=== PATIENT | female | born 1985 | race American Indian/Alaskan Native ===

== ENCOUNTER 2017-10-30 17:31 | Emergency (ER) | payer OTHER ==
[2017-10-30 17:57] LABS: SQUAMOUS EPITHIAL 2 /hpf (0-5); URINE BILIRUBIN NEGATIVE (NEGATIVE); URINE BLOOD NEGATIVE (NEGATIVE); URINE CLARITY Clear (Clear); URINE COLOR Yellow (YELLOW); URINE GLUCOSE (UA) NORMAL (Normal); URINE LEUKOCYTE ESTERASE NEG Leu/uL (Negative); URINE PROTEIN NEGATIVE (NEGATIVE); URINE UROBILINOGEN NORMAL mg/dL (0.2-1.0)
[2017-10-30 17:58] LABS: HCG,QUALITATIVE URINE NEGATIVE (NEGATIVE)
[2017-10-30] MEDS ORDERED: Sodium Chloride 0.9% 1,000 ML IV STA ×2 (18:09→19:03)
[2017-10-30 18:17] LABS: BASO % 0.6 % (0.0-2.0); EOS # 0.1 K/uL (0.0-0.7); EOS % 0.9 % (0.0-4.0); HEMOGLOBIN 13.9 g/dL (11.0-16.0); LYMPH % 28.9 % (20.0-40.0); MEAN CELL VOLUME 91.5 fL (81.0-99.0); MEAN CORPUSCULAR HEMOGLOBIN 31.1 pg (27.0-31.0); MEAN PLATELET VOLUME 7.5 fL (7.2-11.7); MONO # 0.4 K/uL (0.0-0.8); NEUT # 4.5 K/uL (1.8-7.0); NEUT % 63.6 % (50.0-75.0); RBC 4.45 Mil/uL (3.80-5.20); RED CELL DISTRIBUTION WIDTH 13.3 % (11.5-14.5)
[2017-10-30] MEDS ORDERED: Sodium Chloride 0.9% 1,000 ML ONE (18:18)
[2017-10-30 18:27] LABS: AMYLASE 119 U/L (30-110); CALCIUM 9.4 mg/dl (8.6-10.4); GFR AFRICAN-AMERICAN > 60; GFR NON-AFRICAN AMERICAN > 60; LIPASE 122 U/L (23-300)
[2017-10-30 18:30] LABS: ALB/GLOB RATIO 1.4 (1.0-2.1); ALBUMIN 4.8 g/dL (3.5-5.0); ALT/SGPT < 6 U/L (9-52); AST/SGOT 43 U/L (14-36); BLOOD UREA NITROGEN 17 mg/dL (7-17)
--- NOTE | 2017-10-30 18:51 | C.PDOC ---
History Of Present Illness <Carmen Morgan - Last Filed: 10/30/17 19:04> <PhilKelsie - Last Filed: 10/30/17 21:04> 32 y/o female, [facility], presents to the ER complaining of dizziness which began 1 hr ago. 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 Patient reports that she had cold sweats. She notes that she took a break and ate a meal. However, she did not feel better. She had several episodes of vomiting. Otherwise, she denies having CP, abdominal pain, and diarrhea. (Carmen Morgan) History Per: Patient History/Exam Limitations: no limitations Onset/Duration Of Symptoms: Hrs Current Symptoms Are (Timing): Still Present Severity: Moderate <Carmen Morgan - Last Filed: 10/30/17 19:04> <Kelsie Villarreal - Last Filed: 10/30/17 21:04> Time Seen by Provider: 10/30/17 18:02 Chief Complaint (Nursing): Abdominal Pain Past Medical History Reviewed: Historical Data, Nursing Documentation, Vital Signs - Medical History PMH: No Chronic Diseases Surgical History: No Surg Hx Family History: States: No Known Family Hx - Social History Hx Alcohol Use: No Hx Substance Use: No - Immunization History Hx Tetanus Toxoid Vaccination: No Hx Influenza Vaccination: Yes Hx Pneumococcal Vaccination: No <Carmen Morgan - Last Filed: 10/30/17 19:04> Vital Signs: Last Vital Signs Temp 98 F 10/30/17 19:55 Pulse 78 10/30/17 19:55 Resp 18 10/30/17 19:55 BP 126/76 10/30/17 19:55 Pulse Ox 98 10/30/17 19:55 Review Of Systems Except As Marked, All Systems Reviewed And Found Negative. Constitutional: Negative for: Fever, Chills Cardiovascular: Negative for: Chest Pain Gastrointestinal: Positive for: Vomiting. Negative for: Abdominal Pain, Diarrhea Neurological: Positive for: Dizziness <Carmen Morgan - Last Filed: 10/30/17 19:04> Physical Exam - Physical Exam Appears: Non-toxic, No Acute Distress Skin: Normal Color, Warm Head: Atraumatic, Normacephalic Eye(s): bilateral: Normal Inspection Nose: Normal Oral Mucosa: Moist Neck: Supple Chest: Symmetrical Cardiovascular: Rhythm Regular Respiratory: Normal Breath Sounds, No Rales, No Rhonchi, No Wheezing Gastrointestinal/Abdominal: Soft, Tenderness (mild epigastric tenderness), Other (patient vomited during GI exam) Extremity: Normal ROM Neurological/Psych: Oriented x3, Normal Speech <Carmen Morgan - Last Filed: 10/30/17 19:04> ED Course And Treatment - Laboratory Results Result Diagrams: 10/30/17 18:14 10/30/17 18:14 O2 Sat by Pulse Oximetry: 100 (RA) Pulse Ox Interpretation: Normal Progress Note: Labs and UA ordered. Patient given IV Fluids, Protonix IV, and Zofran IV. On re-evaluation patient feels slightly better, but still c/o lightheadness. Patient still denies any abdominal pain/diarrhea. the second liter if NS IV ordered. case was signed out to at 19:00. <Carmen Morgan - Last Filed: 10/30/17 19:04> - Laboratory Results Result Diagrams: 10/30/17 18:14 10/30/17 18:14 <Kelsie Villarreal - Last Filed: 10/30/17 21:04> Progress <Carmen Morgan - Last Filed: 10/30/17 19:04> - Data Reviewed Data Reviewed: Lab <Kelsie Villarreal - Last Filed: 10/30/17 21:04> - Re-Evaluation Re-evaluation Note: 10/30/17 21:03 FEELS BETTER. +UO. NV RESOLVED (Kelsie Villarreal) Disposition - Disposition Disposition Time: 19:05 <Carmen Morgan - Last Filed: 10/30/17 19:04> Counseled Patient/Family Regarding: Studies Performed, Diagnosis, Need For Followup, Rx Given - Disposition Disposition Time: 21:03 <Kelsie Villarreal - Last Filed: 10/30/17 21:04> - Disposition Referrals: YOUR,PMD [Other] Disposition: HOME/ ROUTINE Condition: IMPROVED Prescriptions: Ondansetron [Zofran Odt] 4 mg PO TID PRN #9 odt PRN Reason: Nausea/Vomiting Instructions: Nausea and Vomiting, Adult Forms: [facility] (Hebrew), Work Excuse - Clinical Impression Clinical Impression: Vomiting, Lightheadedness - PA / CLERICAL SUPPORT / Resident Statement MD/DO has reviewed & agrees with the documentation as recorded. - Scribe Statement The provider has reviewed the documentation as recorded by the Scribe <Carmen Morgan - Last Filed: 10/30/17 19:04> <Kelsie Villarreal - Last Filed: 10/30/17 21:04> - Scribe Statement Flaco Lees Provider Attestation All medical record entries made by the Scribe were at my direction and personally dictated by me. I have reviewed the chart and agree that the record accurately reflects my personal performance of the history, physical exam, medical decision making, and the department course for this patient. I have also personally directed, reviewed, and agree with the discharge instructions and disposition. (Carmen Morgan) Physician Patient Turnover Patient Signed Over To: Kelsie Villarreal Handoff Comments: IVF, re-evaluation <Carmen Morgan - Last Filed: 10/30/17 19:04>
[2017-10-30 21:17] VITALS: BP 112/75; PULSE 70; RESP 16; TEMP 98.3; O2SAT 99
== END 2017-10-30 21:22 | disposition home or self-care (01) ==
LOC: C.ER 17:31
DX: R42 Dizziness and giddiness (principal); R11.10 Vomiting, unspecified
CPT/HCPCS: 80053; 81001; 82150; 83690; 84703; 85025; 96361; 96374; 96375; 96376; 99285; C9113; J2405; J7040

== ENCOUNTER 2018-07-06 12:56 | Emergency (ER) | payer OTHER ==
--- NOTE | 2018-07-06 14:22 | C.PDOC ---
History Of Present Illness 32 year old female, with no significant past medical history, presents to the ED for evaluation of body aches, tactile fever, cough, nausea and chills since yesterday. Patient is a [employer] employee, and presented to work today but noticed her symptoms worsened during the day. Patient denies chest pain, shortness of breath and vomiting. Chief Complaint (Nursing): Flu-like Symptoms History Per: Patient History/Exam Limitations: no limitations Onset/Duration Of Symptoms: Hrs Current Symptoms Are (Timing): Still Present Location Of Pain: Diffuse Myalgias Associated Symptoms: Fever, Chills, Cough, Nausea Additional History Per: Patient Past Medical History Reviewed: Historical Data, Nursing Documentation, Vital Signs - Medical History PMH: No Chronic Diseases Surgical History: No Surg Hx Family History: States: Unknown Family Hx - Social History Hx Alcohol Use: No Hx Substance Use: No - Immunization History Hx Tetanus Toxoid Vaccination: No Hx Influenza Vaccination: Yes Hx Pneumococcal Vaccination: No Review Of Systems Constitutional: Positive for: Fever, Chills Cardiovascular: Negative for: Chest Pain Respiratory: Positive for: Cough. Negative for: Shortness of Breath Gastrointestinal: Positive for: Nausea. Negative for: Vomiting Physical Exam - Physical Exam Appears: Non-toxic, No Acute Distress Skin: Normal Color, Warm, Dry Head: Atraumatic, Normacephalic Eye(s): bilateral: Normal Inspection Ear(s): Bilateral: Normal Nose: Normal, No Discharge Oral Mucosa: Moist Throat: Normal, No Erythema, No Exudate Neck: Supple Chest: Symmetrical, No Deformity, No Tenderness Cardiovascular: Rhythm Regular, No Murmur Respiratory: Normal Breath Sounds, No Rales, No Rhonchi, No Wheezing Extremity: Normal ROM, Capillary Refill (less than 2 seconds ) Neurological/Psych: Oriented x3, Normal Speech, Normal Cognition Medical Decision Making Medical Decision Making: Progress: Flu swab ordered and reviewed. Patient is negative for Flu A/B. Results were discussed with the patient. Patient is resting comfortably, showing no signs of distress and stable for discharge. Patient advised to f/u with her PMD within 1-2 days for further evaluation. Disposition Counseled Patient/Family Regarding: Studies Performed, Diagnosis, Need For Followup - Disposition Disposition: HOME/ ROUTINE Disposition Time: 14:20 Condition: GOOD Additional Instructions: KRISS HAWLEY, thank you for letting us take care of you today. Your provider was Denice Cuadra MD and you were treated for HEADACHE,NAUSEA. The emergency medical care you received today was directed at your acute symptoms. If you were prescribed any medication, please fill it and take as directed. It may take several days for your symptoms to resolve. Return to the Emergency Department if your symptoms worsen, do not improve, or if you have any other problems. Please contact your doctor for a follow up appointment in 1-2 days. Bring any paperwork you were given at discharge with you along with any medications you are taking to your follow up visit. Our treatment cannot replace ongoing medical care by a primary care provider outside of the emergency department. Thank you for allowing the [facility] team to be part of your care today. Instructions: Viral Syndrome (DC) Forms: General Discharge Instructions, [facility] (British), Work Excuse - POA Present On Arrival: None - Clinical Impression Clinical Impression: Viral syndrome
[2018-07-06 14:47] VITALS: BP 109/76; PULSE 78; RESP 20; TEMP 98.8; O2SAT 99
== END 2018-07-06 14:28 | disposition home or self-care (01) ==
LOC: C.ER 12:56
DX: B34.9 Viral infection, unspecified (principal)